=== PATIENT | female | born 1985 | race Caucasian/White ===

== ENCOUNTER 2024-02-27 16:18 | Outpatient (CLI) | payer BC, SELFPAY ==
[2024-03-02 05:43] LABS: FSH 6.4 mIU/mL; LH 8.6 mIU/mL
== END 2024-02-27 16:19 | disposition home or self-care (01) ==
LOC: ANHLAB 16:19
PROVIDERS: PCP Otolaryngology; Visit Provider Obstetrics & Gynecology
DX: N95.9 Unspecified menopausal and perimenopausal disorder (principal)
CPT/HCPCS: 36415; 83001; 83002

== ENCOUNTER 2024-04-28 00:32 | Day surgery (SDC) | payer BC, SELFPAY ==
--- NOTE | 2024-04-19 17:34 | SUR.PREOP ---
Report to the Outpatient Waiting Room, entrance under the green pavilion located off [facility], at time _1000_ on date _04/28/2024_. Planned Procedure Time: _1200_.? Time changes happen often and if your time is changed the preop area will call you the afternoon before. - You and your visitor will be asked to self-screen and do not enter if you have any COVID symptoms. Please call surgeon if you need to reschedule. - A mask is optional within the hospital at this time. Patients may have clear liquids (water, carbonated beverages, clear teas, apple juice) until 3 hours (0900) prior to surgery with a maximum of 20 ounces. - No food from midnight until time of surgery and no smoking, or chewing tobacco (or any form of nicotine). No chewing gum, candy or mints. Take only the following medications with a SIP of water on the morning of surgery: _lamotrigine_ DO NOT STOP ANY OF YOUR OTHER PRESCRIPTION MEDICATIONS PRIOR TO SURGERY EXCEPT THE FOLLOWING Hold all vitamins and supplements for 3 days per anesthesiologist. Medications to discontinue per physician _NA_ Date to take last dose_NA_ Please no make-up, nail english, hairspray, perfume, deodorant, or body powder the day of surgery.? No jewelry (including any body piercings) or valuables the day of surgery, leave them at home.? Please take a shower or bath the night before, or the morning of, surgery with an antibacterial soap.? Wear comfortable, loose fitting clothing.? Children are encouraged to wear pajamas. - Jewelry must be removed prior to entering the operating room.? Rings and piercings that are not removed may be cut off. - The hospital will not accept responsibility for valuables.? - Please leave all valuables, including medications, at home the day of surgery. If you are going home after surgery, a licensed rivet driver must drive you home.? - NO public transportation without another adult if you receive anesthesia. - We recommend that an adult stay with you for 24 hours following discharge. - We also recommend that you do not drive, make important decision, drink alcoholic beverages, or take any drugs that were not prescribed by your health care provider for at least 24 hours after your discharge time. For Pediatric surgeries, we recommend two adults accompany the child home. Follow any additional instructions given to you from your surgeon. Telephone instructions given to _Natali_and asked if any additional questions and then verbalized understanding. Patient advised to call surgeon office or pre surgery nurse liaison [phone] if any additional questions.
[2024-04-19 17:48] VITALS: BMI 18.6
--- NOTE | 2024-04-27 13:13 | P.PNAN_ITS ---
Anes - Initial Pre Proc Eval Procedure: Operation Date: 04/28/24 12:00 Proposed Procedures p Hysteroscopy Dilation and Curettage with Kayla Endometrial Ablation - Mahad Montejo MD Date/Time: 04/27/24 13:13 Surgeon: Mahad Montejo MD Pre Op Diagnosis: irregular heavy bleeding Patient Data Age: 38 Gender: F Height: 1.65 m Weight: 50.9 kg Allergies Allergy/AdvReac Type Severity Reaction Status Date / Time No Known Allergies Allergy Unknown Verified 04/28/24 10:06 Home Medications ?Medication ?Instructions ?Recorded ?Confirmed ?Type lamotrigine 100 mg tablet 200 mg PO BID 04/19/24 04/28/24 History norethindrone 1 mg-ethinyl 1 tablet PO DAILY 04/19/24 04/28/24 History estradiol 10 mcg (24)-iron 10 mcg(2) tablet (Lo Loestrin Fe) rimegepant 75 mg disintegrating 75 mg PO PRN PRN migraine headache 04/19/24 04/19/24 History tablet (Nurtec ODT) Patient hx anesthesia problems: none Family hx anesthesia problems: none Results Review: All pre-operative results and documents have been reviewed as part of the pre- operative evaluation. [facility] Past Medical History Medical History (Updated 04/27/24 @ 13:13 by Denzel Lara DO) Epilepsy Seizure last 2010 Social History Social History Smoking status: Never smoker Second hand tobacco smoke exposure: No Substance use: never Substance use type: does not use Living arrangements: with family Additional living arrangements comments: with and daughter Spiritual care concerns: No Anes - Eval Final PreProcedure Day of Procedure 04/27/24 13:13 Patient weight: normal Heart: regular rate and rhythm Lungs: clear to auscultation and normal air movement Airway: Mallampati scale class II Neurological: alert and oriented Last oral intake: >/= 8 hours ASA classification: II Emergent: no Anesthetic plan: proceed Anesthesia type and monitoring: general GIVS and standard monitoring Results Review: All pre-operative results and documents have been reviewed as part of the pre- operative evaluation. Informed Consent: The patient's anesthetic plan and its attendant risks and benefits were discussed with the patient/family/POA. Questions were solicited and answers provided to the satisfaction of the patient/family/POA.
--- OUTSIDE RECORDS SUMMARY | 2024-04-28 00:35 | XMS_ITS | Referral Summary ---
Author Organization [facility] Address [address] [place] [address] Care Team Providers Care Automobile Drivers Name Role Phone Joe Fadia LINO Primary Care Pr ovider Allergies No known active allergies Medications multivitamin-min erals-lutein tablet daily. 3 Active norethindrone-e. estradioL-iron (Lo Loestrin Fe) 1 mg-10 mcg (24)/10 mcg (2) tablet Take 1 tablet by mouth daily 28 tablet 0 Active fluconazole (DIFLUCAN) 150 mg tabletIndication s:Antibiotic-ind uced yeast infection Take 1 tablet (150 mg total) by mouth as directed Take one tab now. Repeat in 7 days if symptoms persist. 2 tablet 3 Active Additional Information Patient not taking.Reported on 06/06/2022 tretinoin (RETIN-A) 0.025 % cream 3 Active benzonatate (TESSALON) 200 mg capsuleIndicatio ns:Acute cough Take 1 capsule (200 mg total) by mouth 3 (three) times a day as needed for cough 30 capsule 3 Active Additional Information Patient not taking.Reported on 04/13/2023 albuterol HFA (PROVENTIL HFA,VENTOLIN HFA,PROAIR HFA) 90 mcg/actuation inhalerIndicatio ns:Bronchitis Inhale 2 puffs every 4 (four) hours as needed for shortness of breath or wheezing (cough) 18 g 4 Active Additional Information Patient not taking.Reported on 10/13/2023 inhalational spacing device (Aerochamber MV) spacerIndication s:Bronchitis Use with albuterol inhaler 1 each 4 Active Additional Information Patient not taking.Reported on 10/13/2023 lamoTRIgine (LaMICtal) 100 mg tabletIndication s:Generalized idiopathic epilepsy and epileptic syndromes, not intractable, without status epilepticus (HCC) Take 2 tablets (200 mg total) by mouth 2 (two) times a day 360 tablet 3 4 07/30/19 25 Active lidocaine viscous (XYLOCAINE) 2 % solution Apply 15 mL to the mouth or throat every 6 (six) hours as needed (sore throat) Swish & spit 200 mL 4 Active Active Problems Problem Noted Date Diagnosed Date Fatigue 07/12/2022 Migraine 07/12/2022 Generalized idiopathic epile psy and epileptic syndromes, not intractable, without status epilepticus 09/05/2016 Cephalalgia 01/19/2015 Iron deficiency anemia 07/24/2013 Overview (06/14/2016): IRON DEFIC ANEMIA NOS Resolved Problems Problem Noted Date Diagnosed Date Resolved Date Seizure disorder (CMS/HCC) 07/12/2022 0 07/30/2023 Immunizations Immunization Administration Dates Next Due Influenza, Trivalent, IM (MDV) 12/19/2008 Social History Tobacco Use Types Packs/Day Years Used Date Smoking Tobacco: Never Smokeless Tobacco: Never Tobacco Cessation:Counseling Given: Not Answered Alcohol Use Standard Drinks/Week Comments No 0 (1 standard drink = 0.6 oz pur e alcohol) Comments No Sex and Gender Information Value Date Recorded Sex Assigned at Not on file 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 Gender Identity Not on file Sexual Orientation Straight 09/29/2019 12 :12 AM CDT Last Filed Vital Signs Vital Sign Reading Time Taken Comments Blood Pressure 112/80 12/08/2023 5:49 PM CDT Pulse 56 12/08/2023 5:49 PM CDT Temperature 36.6 C (97.8 F) 12/08/2023 5:49 PM CDT Respiratory Rate 14 12/08/2023 5:49 PM CDT Oxygen Saturation 97% 12/08/2023 5:49 PM CDT Inhaled Oxygen Concentration - - Weight 51.3 kg (113 lb) 12/08/2023 5:49 PM CDT Height 165.1 cm (5' 5 ) 12/08/2023 5:49 PM CDT Body Mass Index 18.8 12/08/2023 5:49 PM CDT Plan of Treatment Not on file Insurance [employer] [place] [employer] [place] [employer] [place] Care Teams Automobile Drivers Relationship Specialty Start Date End Date Fadia Diaz PA PCP - General Physician Loading Machine Adjuster 01/11/22
--- OUTSIDE RECORDS SUMMARY | 2024-04-28 00:35 | XMS_ITS | Patient Health Record ---
Author Organization [facility] Address [address] [place] [address] Care Team Providers Care Dispatcher Electric Power Name Role Phone Fadia Diaz Primary Care Provider Unavailab Leyda Lal Unavailable [phone] Allergies No Known Allergies Reason For Referral No Information Medications Medication SIG (Take, Route, Frequency, Duration) Notes Start Date End Date Status Low-Ogestrel 0.3-30 MG-MCG 1 tablet Orally Once a day As needed 02/19/2024 Active Rizatriptan Benzoate 10 MG 1 tablet Orally once, may repeat x1 after 2-4 hours for 30 days As needed for migraine (max 2 tabs/day) 02/19/2024 Active LaMICtal 200 MG 1 tablet Orally Once a day Active Nurtec 75 MG 1 tablet Orally once daily for 30 days As needed 04/07/2024 Active Social History Tobacco Use: Social History Observation Description Date Details (start date - stop date) Never Smoker NA - NA Smoking Smart Form: Question Answer Notes Are you a: never smoker Additional Findings:Tobacco Non-User Non-smoker for zoroastrianism reasons Problems Problem Type SNOMED Code ICD Code Onset Dates Problem Status W/U Status Risk Notes Problem Generalized idiopathic epilepsy and epileptic syndromes, not intractable, without status epilepticus (G40.309) Active confirmed Problem Chronic migraine without aura, non-refractor y (disorder) (002168052295 100) Migraine without aura, not intractable, without status migrainosus (G43.009) Active confirmed Problem Migraine with aura (7561008) Migraine with aura, not intractable, without status migrainosus (G43.109) Active confirmed Problem Chronic migraine without aura, non-intractab le (417476565120 100) Chronic migraine without aura, not intractable, without status migrainosus (G43.709) Active confirmed Vital Signs Blood pressure diastolic 84 mm Hg 02/19/2024 Oximetry 100 % 02/19/2024 Blood pressure systolic 118 mm Hg 02/19/2024 Weight 112.2 lbs 02/19/2024 Encounters Encounter Location Date Provider Diagnosis [address] [address] 02/19/2024 Leyda Linares Migraine without aura, not intractable, without status migrainosus G43.009 ; Drug-induced headache, not elsewhere classified, not intractable G44.40 ; Myalgia, unspecified site M79.10 and Generalized idiopathic epilepsy and epileptic syndromes, not intractable, without status epilepticus G40.[address] [address] 04/07/2024 Leyda Linares [address] [address] 04/08/2024 Leyda Linares [address] [address] 04/07/2024 Leyda Linares [address] [address] 04/08/2024 Leyda Linares Assessments Encounter Date Diagnosis (ICD Code) Assessment Notes Treatment Notes Treatment Clinical Notes Section Notes 02/19/2024 Migraine without aura, not intractable, without status migrainosus (ICD-10 - G43.009) -Abortive treatment plan: Start rizatriptan 10 mg. Gave samples of Nurtec and Ubrelvy.-Preventi ve treatment plan: The patient prefers not to be on daily preventative medication at this time.-Educated the patient on migraine lifestyle recommendations. I recommended the following measures: avoid known triggers of migraine, drink > 100 fluid ounces of non-caffeinated fluid daily, limit caffeine to 2 servings/day, sleep 7-8 hours/night and address any sleep concerns with us and report symptoms of snoring or fatigue; healthy management of stress; avoid treating headaches more than 2 days/week with abortive medication unless approved in treatment plan; can take Riboflavin 400 mg and Magnesium 500 mg daily as supplements; keep scheduled follow-up appointments 02/19/2024 Drug-induced headache, not elsewhere classified, not intractable (ICD-10 - G44.40) Limit use of OTC analgesics to 2 days per week or less. Educated patient regarding medication overuse headaches. Advised to avoid taking NSAIDs or acetaminophen > 15 days/month, triptans or DHE > 10 days/month, butalbital > 10 days/month to avoid rebound headaches. 02/19/2024 Myalgia, unspecified site (ICD-10 - M79.10) Continue chiropractic treatments. 02/19/2024 Generalized idiopathic epilepsy and epileptic syndromes, not intractable, without status epilepticus (ICD-10 - G40.309) Continue lamotrigine as prescribed. Plan Of Treatment Next Appt Details Provider Name:Leyda ascencio, 05/13/2024 03:30:00 PM, [address], [address], Insurance Providers Payer Name Payer Address Payer Phone Subscriber Number Group Number Insured Name Patient Relationship to Insured Coverage Start Date Coverage End Date [facility] [address] [place] [phone] [id number] Dmitry Castro Spouse - patient is the spouse of the insured Medical (General) History Medical History History ICD Code Epilepsy migraines Surgical History Surgery Date(Month/Year) Laparoscopic surgery to identify endomet riosis 10/26/2010 Tonsillectomy 02/13/2015 D and c 01/01/2013 Hospitalization History Reason Date(Month/Year) Continuous EEG video monitoring for epil epsy 07/12/2011
--- OUTSIDE RECORDS SUMMARY | 2024-04-28 00:35 | XMS_ITS | Clinical Summary ---
Author Organization [facility] Address [address] [place] [address] Care Team Providers Care Senior Strategy Analyst Name Role Phone Naomy Diazdanny LINO Primary Care Pr ovider Allergies No [...] Next Due Influenza, Trivalent, IM (MDV) 12/19/2008 Surgical History Surgery Date Site/Laterality Comments VA LAPS ABD PRTM&OMENTUM DX W/WO SPEC BR/WA SPX Laparoscopy (Diagnostic) - (Added by TW Conv) Medical History Medical History Date Comments Varicella History of varic debra - (Added by TW Conv) Mononucleosis 2005 [place] Seizure disorder (CMS/HCC) (HCC) Migraine Ovarian cyst Family History Medical History Relation Name Comments Kidney disease Father Epilepsy Sister Family history of epilepsy - (Added by TW Conv) Deep vein thrombosis Neg Hx Pulmonary embolism Neg Hx Relation Name Status Comments Father Sister Social History Tobacco Use Types Packs/Day Years Used Date Smoking Tobacco: Never Smokeless Tobacco: Never Tobacco Cessation:Counseling Given: Not Answered Alcohol Use Standard Drinks/Week Comments No 0 (1 standard drink = 0.6 oz pur e alcohol) Comments No Sex and Gender Information Value Date Recorded Sex Assigned at Not on file 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[employer] Gender Identity Not on file Sexual Orientation Straight 09/29/2019 12 :12 AM CDT Obstetrics History Last Filed Vital Signs Vital Sign Reading [...] 12/08/2023 5:49 PM CDT Plan of Treatment Health Maintenance Due Date Last Done Comments Cervical Cancer Screening 1986 Depression Screening 1986 Hepatitis C Screening 1986 DTaP/Tdap/Td Vaccine (1 - Tdap) 1997 Hepatitis B Screening 2004 Regular Well Visit/Exam 18-64 2004 Covid-19 Vaccine ( season) 2023 06/17/2020, 05/26/2020 Influenza Vaccine (#1) 2023 7, 12/05/2016, 03/20/2013, Additional history exists HPV Vaccines Aged Out No longer eligi ble based on patient's age to complete this topic Pneumococcal vaccine <65 Aged Out No longer eligible based on patient's age to complete this topic Insurance [facility] [place] Care Teams Senior Strategy Analyst Relationship Specialty Start Date End Date Fadia Diaz PA PCP - General Physician Letter Of Credit Document Examiner 01/11/22
--- OUTSIDE RECORDS SUMMARY | 2024-04-28 00:35 | XMS_ITS | Data Portability ---
Author Organization [facility] Kiosked, Main Office Address [address] [place] [address] Assessment No assessment recorded. Plan of Treatment Reminders Order Date Submit Date Provider Last Modified By Organization Details Last Modified Time Details Appointments None recorded. Lab lipid panel, serum 023 023 [employer] [facility], [address], [place], [address], 3 10:23:36 CBC w/ auto diff 023 [employer] [facility], [address], [place], [address], 3 10:23:39 CMP, serum or plasma 023 [employer] [facility], [address], [place], [address], 3 10:23:37 HbA1c (hemoglob in A1c), blood 023 023 [employer] [facility], [address], [place], [address], 3 10:23:38 TSH + free T4, serum 023 023 [employer] [facility], [address], [place], [address], 3 10:23:35 iron + TIBC + ferritin, serum 023 023 [employer] [facility], [address], [place], [address], 3 10:23:35 vitamin B12 + folate, serum or blood 023 023 [facility], [address], [place], [address], 3 10:23:40 vitamin D, 25-hydrox y, total, serum 023 023 [facility], [address], [place], [address], 3 10:23:39 Referral None recorded. Procedures None recorded. Surgeries None recorded. Imaging None recorded. Medication Orders None recorded. Patient TargetsNo targets recorded. Patient InstructionsNo instructions recorded. Reason for Referral None Reported. Results Created Date Observation Date Name Description Value Unit Range Abnormal Flag Note LastModifiedBy Organization Detail LastModifiedTime 07/20/1907/20/2022 IRON, TIBC AND JAMEE TIN PANEL iron, total 169 mcg/d L 40-190 normal Not Available [address], [address], 07/20/2022 10:23:35 07/20/19 23 07/20/2022 IRON, TIBC AND JAMEE TIN PANEL iron binding capacity 311 mcg/d L_(ca lc) 250-45 0 normal Not Available [address] [address] [place], [address], 07/20/2022 10:23:35 07/20/19 23 07/20/2022 IRON, TIBC AND JAMEE TIN PANEL % saturation 54 %_(ca lc) 16-45 high Not Available [address] [address] [place], [address], 07/20/2022 10:23:35 07/20/19 23 07/20/2022 IRON, TIBC AND JAMEE TIN PANEL ferritin 50 NG/mL 16-154 normal Not Available [address], [address], 07/20/2022 10:23:35 07/20/19 23 07/20/2022 TSH+F REE T4 TSH 1.14 mIU/L normal Refer ence Range > or = 20 Years 0.40- 4.50 Pregn king Range s First trime ster 0.26- 2.66 Secon d trime ster 0.55- 2.73 Third trime ster 0.43- 2.91 Not Available [address], [address], 07/20/2022 10:23:35 07/20/19 23 07/20/2022 TSH+F REE T4 T4, free 1.2 NG/dL 0.8-1. 8 normal Not Available [address], [address], 07/20/2022 10:23:35 07/20/19 23 07/20/2022 LIPID PANEL WITH RATIO S cholesterol, total 160 mg/dL <200 normal Not Available [address], [address], 07/20/2022 10:23:36 07/20/19 23 07/20/2022 LIPID PANEL WITH RATIO S HDL cholesterol 59 mg/dL > or = 50 normal Not Available [address], [address], 07/20/2022 10:23:36 07/20/19 23 07/20/2022 LIPID PANEL WITH RATIO S triglyceride s 84 mg/dL <150 normal Not Available [address], [address], 07/20/2022 10:23:36 07/20/19 23 07/20/2022 LIPID PANEL WITH RATIO S LDL-choleste rol 84 mg/dL _(estella c) normal Refer ence range : <100 Sharath able range <100 mg/dL for prima ry preve ntion ; <70 mg/dL for patie nts with CHD or diabe tic patie nts with > or = 2 CHD risk facto rs. LDL-C is now calcu lated using the Aixa n-Hop kins kyleigh amanda, which is a valid ated novel metho d provi ding wendy r accur acy than the Fried leigh equat ion in the estim ation of LDL-C . Aixa amanda SS et al. SAUL. 2013; 310(1 9): 2061- 206 (http ://ed ucati on.Qu WhiteSmoke. com/f aq/FA Q164) Not Available [employer] [address], [address], 07/20/2022 10:23:36 07/20/19 23 07/20/2022 LIPID PANEL WITH RATIO S chol/HDLC ratio 2.7 (calc ) <5.0 normal Not Available [employer] [address], [address], 07/20/2022 10:23:36 07/20/19 23 07/20/2022 LIPID PANEL WITH RATIO S LDL/HDL ratio 1.4 (calc ) Below avera ge Risk: <2.34 [place] ge Risk: 2.35- 4.12 Moder ate Risk: 4.13- 5.56 High Risk: >5.57 Not Available [employer] [address], [address], 07/20/2022 10:23:36 07/20/19 23 07/20/2022 LIPID PANEL WITH RATIO S non HDL cholesterol 101 mg/dL _(estella c) <130 normal For patie nts with diabe chinmay plus 1 major ASCVD risk facto r, treat ing to a non-H DL-C goal of <100 mg/dL (LDL- C of <70 mg/dL ) is aureliano boyleo n. Not Available [employer] [facility] [id number] [place] [address], [address], 07/20/2022 10:23:36 07/20/19 23 07/20/2022 COMPR EHENS KANDY METAB OLIC PANEL glucose 77 mg/dL 65-99 normal Fasti ng refer ence inter tai Not Available [address], [address], 07/20/2022 10:23:37 07/20/19 23 07/20/2022 COMPR EHENS KANDY METAB OLIC PANEL urea nitrogen (BUN) 9 mg/dL 7-25 normal Not Available [address], [address], 07/20/2022 10:23:37 07/20/19 23 07/20/2022 COMPR EHENS KANDY METAB OLIC PANEL creatinine 0.77 mg/dL 0.50-0 .97 normal Not Available [address], [address], 07/20/2022 10:23:37 07/20/19 23 07/20/2022 COMPR EHENS KANDY METAB OLIC PANEL eGFR 103 mL/mi n/1.7 3m2 > or = 60 normal The eGFR is based on the CKD-E PI 2020 equat ion. To calcu late the new eGFR from a previ ous Creat inine or Cysta tin C resul t, go to https ://bony ash.kennedy mullins/nubia kebede s/ kdoqi /gfr% 5Fcal culat or Not Available [address], [address], 07/20/2022 10:23:37 07/20/19 23 07/20/2022 COMPR EHENS KANDY METAB OLIC PANEL BUN/creatini ne ratio NOT APPLIC ABLE (calc ) 6-22 Not Available [address], [address], 07/20/2022 10:23:37 07/20/19 23 07/20/2022 COMPR EHENS KANDY METAB OLIC PANEL sodium 139 mmol/ L 135-14 6 normal Not Available [address], [address], 07/20/2022 10:23:37 07/20/19 23 07/20/2022 COMPR EHENS KANDY METAB OLIC PANEL potassium 4.2 mmol/ L 3.5-5. 3 normal Not Available [address], [address], 07/20/2022 10:23:37 07/20/19 23 07/20/2022 COMPR EHENS KANDY METAB OLIC PANEL chloride 103 mmol/ L 98-110 normal Not Available [address], [address], 07/20/2022 10:23:37 07/20/19 23 07/20/2022 COMPR EHENS KANDY METAB OLIC PANEL carbon dioxide 29 mmol/ L 20-32 normal Not Available [address], [address], 07/20/2022 10:23:37 07/20/19 23 07/20/2022 COMPR EHENS KANDY METAB OLIC PANEL calcium 9.2 mg/dL 8.6-10 .2 normal Not Available [address], [address], 07/20/2022 10:23:37 07/20/19 23 07/20/2022 COMPR EHENS KANDY METAB OLIC PANEL protein, total 7.1 g/dL 6.1-8. 1 normal Not Available [address], [address], 07/20/2022 10:23:37 07/20/19 23 07/20/2022 COMPR EHENS KANDY METAB OLIC PANEL albumin 4.7 g/dL 3.6-5. 1 normal Not Available [address], [address], 07/20/2022 10:23:37 07/20/19 23 07/20/2022 COMPR EHENS KANDY METAB OLIC PANEL globulin 2.4 g/dL_ (calc ) 1.9-3. 7 normal Not Available [address], [address], 07/20/2022 10:23:37 07/20/19 23 07/20/2022 COMPR EHENS KANDY METAB OLIC PANEL albumin/glob ulin ratio 2.0 (calc ) 1.0-2. 5 normal Not Available [address], [address], 07/20/2022 10:23:37 07/20/19 23 07/20/2022 COMPR EHENS KANDY METAB OLIC PANEL bilirubin, total 0.6 mg/dL 0.2-1. 2 normal Not Available [address], [address], 07/20/2022 10:23:37 07/20/19 23 07/20/2022 COMPR EHENS KANDY METAB OLIC PANEL alkaline phosphatase 44 U/L 31-125 normal Not Available [address], [address], 07/20/2022 10:23:37 07/20/19 23 07/20/2022 COMPR EHENS KANDY METAB OLIC PANEL AST 10 U/L 10-30 normal Not Available [address], [address], 07/20/2022 10:23:37 07/20/19 23 07/20/2022 COMPR EHENS KANDY METAB OLIC PANEL ALT 8 U/L 6-29 normal Not Available [address], [address], 07/20/2022 10:23:37 07/20/19 23 07/20/2022 HEMOG LOBIN A1C hemoglobin A1C 4.7 %_of_ total _HGB <5.7 normal For the purpo se of hemal melendrez for the prese nce of diabe chinmay: <5.7% Consi stent with the absen ce of diabe chinmay 5.7-6 .4% Consi stent with incre ased risk for diabe chinmay (pred iabet es) > or =6.5% Consi stent with diabe chinmay This assay resul t is consi stent with a decre ased risk of diabe chinmay. Curre ntly, no conse nsus exist s regar michael use of hemog lobin A1c for diagn osis of diabe chinmay in child willy. Accor ding to Ameri can Diabe chinamy Assoc iatio n (ADA) guide lines , hemog lobin A1c <7.0% repre sents optim al contr ol in non-p regna nt diabe tic patie nts. Diffe rent metri cs may apply to speci fic patie nt popul ation s. Stand ards of Medic al Care in Diabe chinmay(A DA). Not Available [employer] [facility] [address] [place], [address], 07/20/2022 10:23:38 07/20/19 23 07/20/2022 VITAM IN D,25- OH,TO CHAPARRO,I A vitamin D,25-oh,tota l,ia 28 NG/mL 30-100 low Vitam in D Statu s 25-OH Vitam in D: Defic iency : <20 ng/mL Insuf ficie ncy: 20 - 29 ng/mL Optim al: > or = 30 ng/mL For 25-OH Vitam in D testi ng on patie nts on D2-dutton pplem entat ion and patie nts for whom quant itati on of D2 and D3 fract ions is requi red, the [facility] Assur eD(TM ) 25-OH VIT D, (D2,D 3), LC/MS /MS is recom raffi d: order code 70766 (angela ents >2yrs ). See Note 1 Note 1 For addit ional infor jody mckenna e refer to http: //edu catio n.Que stDia gnost ics.c om/fa q/FAQ 199 (This link is being provi ded for infor rosita baron/ itzel telloo ses only. ) Not Available [address], [address], 07/20/2022 10:23:39 07/20/19 23 07/20/2022 CBC (INCL UDES DIFF/ PLT) white blood cell count 8.6 thous and/u L 3.8-10 .8 normal Not Available [address], [address], 07/20/2022 10:23:39 07/20/19 23 07/20/2022 CBC (INCL UDES DIFF/ PLT) red blood cell count 5.02 tiara on/uL 3.80-5 .10 normal Not Available [address], [address], 07/20/2022 10:23:39 07/20/19 23 07/20/2022 CBC (INCL UDES DIFF/ PLT) hemoglobin 14.5 g/dL 11.7-1 5.5 normal Not Available [address], [address], 07/20/2022 10:23:39 07/20/19 23 07/20/2022 CBC (INCL UDES DIFF/ PLT) hematocrit 43.2 % 35.0-4 5.0 normal Not Available [address], [address], 07/20/2022 10:23:39 07/20/19 23 07/20/2022 CBC (INCL UDES DIFF/ PLT) MCV 86.1 fL 80.0-1 00.0 normal Not Available [address], [address], 07/20/2022 10:23:39 07/20/19 23 07/20/2022 CBC (INCL UDES DIFF/ PLT) MCH 28.9 pg 27.0-3 3.0 normal Not Available [address], [address], 07/20/2022 10:23:39 07/20/19 23 07/20/2022 CBC (INCL UDES DIFF/ PLT) MCHC 33.6 g/dL 32.0-3 6.0 normal Not Available [address], [address], 07/20/2022 10:23:39 07/20/19 23 07/20/2022 CBC (INCL UDES DIFF/ PLT) RDW 13.2 % 11.0-1 5.0 normal Not Available [address], [address], 07/20/2022 10:23:39 07/20/19 23 07/20/2022 CBC (INCL UDES DIFF/ PLT) platelet count 310 thous and/u L 140-40 0 normal Not Available [address], [address], 07/20/2022 10:23:39 07/20/19 23 07/20/2022 CBC (INCL UDES DIFF/ PLT) MPV 10.1 fL 7.5-12 .5 normal Not Available [address], [address], 07/20/2022 10:23:39 07/20/19 23 07/20/2022 CBC (INCL UDES DIFF/ PLT) absolute neutrophils 5521 cells /uL 1500-7 800 normal Not Available [employer] [address], [address], 07/20/2022 10:23:39 07/20/19 23 07/20/2022 CBC (INCL UDES DIFF/ PLT) absolute lymphocytes 2468 cells /uL 850-39 00 normal Not Available [address], [address], 07/20/2022 10:23:39 07/20/19 23 07/20/2022 CBC (INCL UDES DIFF/ PLT) absolute monocytes 482 cells /uL 200-95 0 normal Not Available [address], [address], 07/20/2022 10:23:39 07/20/19 23 07/20/2022 CBC (INCL UDES DIFF/ PLT) absolute eosinophils 86 cells /uL 15-500 normal Not Available [address], [address], 07/20/2022 10:23:39 07/20/19 23 07/20/2022 CBC (INCL UDES DIFF/ PLT) absolute basophils 43 cells /uL 0-200 normal Not Available [facility] [address], [address], 07/20/2022 10:23:39 07/20/19 23 07/20/2022 CBC (INCL UDES DIFF/ PLT) neutrophils 64.2 % normal Not Available [facility] [address], [address], 07/20/2022 10:23:39 07/20/19 23 07/20/2022 CBC (INCL UDES DIFF/ PLT) lymphocytes 28.7 % normal Not Available [address], [address], 07/20/2022 10:23:39 07/20/19 23 07/20/2022 CBC (INCL UDES DIFF/ PLT) monocytes 5.6 % normal Not Available [facility] [address], [address], 07/20/2022 10:23:39 07/20/19 23 07/20/2022 CBC (INCL UDES DIFF/ PLT) eosinophils 1.0 % normal Not Available [address], [address], 07/20/2022 10:23:39 07/20/19 23 07/20/2022 CBC (INCL UDES DIFF/ PLT) basophils 0.5 % normal Not Available [address], [address], 07/20/2022 10:23:39 07/20/19 23 07/20/2022 VITAM IN B12/F OLATE , SERUM PANEL vitamin B12 204 pg/mL 200-11 00 normal Pleas e Note: Altho ugh the refer ence range for vitam in B12 is 200-1 100 pg/mL , it has been repor saad that betwe en 5 and 10% of patie nts with value s betwe en 200 and 400 pg/mL may exper ience neuro psych iatri c and hemat ologi c abnor malit ies due to occul t B12 defic iency ; less than 1% of patie nts with value s above 400 pg/mL will have sympt oms. Not Available [address], [address], 07/20/2022 10:23:40 07/20/19 23 07/20/2022 VITAM IN B12/F OLATE , SERUM PANEL folate, serum 14.2 NG/mL normal Refer ence Range Low: <3.4 Borde rline : 3.4-5 .4 Ashley l: >5.4 Not Available [address], [address], 07/20/2022 10:23:40 Result Notes None recorded. Problems Name Problem SNOMED Code Status Onset Date Resolution Date Notes Provider Name and Address Organization Details Recorded Time Fatigue 56390239 Active 023 HOLLAND Miranda [address], [place], [address] , [place] [facility] [employer] 3 12:44:09 Migraine 97783771 Active 023 HOLLAND Miranda [address], [place], [address] , [facility] 3 12:46:13 Seizure disorder 268742661 Active 023 HOLLAND Miranda [address] [facility] [address], [place], [address] , [facility] 3 12:46:16 Problem Notes None recorded. 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 Procedure Notes None recorded. Medical Equipment None Reported. Allergies No known drug allergies Medications Name Sig Start Date Stop Date Status Note LastModified by Organization Details LastModified Time amoxicillin 500 mg capsule 06/27 completed Not Available Not Available Not Available doxycycline hyclate 100 mg capsule Take 1 capsule twice a day by oral route with meals. active Not Available Not Available No t Available azithromycin 250 mg tablet TAKE 2 TABLETS (500 MG) BY ORAL ROUTE ONCE DAILY FOR 1 DAY THEN 1 TABLET (250 MG) BY ORAL ROUTE ONCE DAILY FOR 4 DAYS 06/27 completed Not Available Not Available Not Available fluconazole 150 mg tablet 06/27 completed Not Available Not Available Not Available benzonatate 200 mg capsule Take 1 capsule 3 times a day by oral route as needed. 06/27 completed Not Available Not Available Not Available amoxicillin 875 mg tablet Take 1 tablet every 12 hours by oral route. 06/27 completed Not Available Not Available Not Available nortriptylin e 10 mg capsule active Not Available Not Available Not Available methylpredni solone 4 mg tablets in a dose pack 06/27 completed Not Available Not Available Not Available lamotrigine 100 mg tablet TK 2 TS PO IN THE MORNING AND IN THE MARIAELENA active Not Available Not Available No t Available amoxicillin 875 mg-potassium clavulanate 125 mg tablet 06/27 completed Not Available Not Available Not Available drospiren-e. estrad-l.mef ol 3 mg-0.02 mg-0.451 mg(24)/0.451 mg(4)tablet 03/25 completed Not Available Not Available Not Available Lo Loestrin Fe 1 mg-10 mcg (24)/10 mcg (2) tablet TAKE 1 TABLET BY MOUTH DAILY active Not Available Not Available No t Available Minastrin 24 Fe 1 mg-20 mcg (24)/75 mg (4) chewable tablet TK 1 T PO QD 04/02 completed Not Available Not Available Not Available Virtussin AC 10 mg-100 mg/5 mL oral liquid TK 10ML PO HS PRN 04/16 completed Not Available Not Available Not Available Taytulla 1 mg-20 mcg (24)/75 mg (4) capsule TK 1 C PO QD 03/25 completed Not Available Not Available Not Available Fluvirin 4514-1447 45 mcg (15 mcg x 3)/0.5 mL intramuscula r suspension active Not Available Not Available Not Available Vitals Date Recorded Body mass index (BMI) Body height Oxygen saturation Oxygen saturation in Arterial blood by Pulse oximetry Heart rate Body temperature Body weight Systolic blood pressure Diastolic blood pressure Provider Name and Address Organization Details Last Updated DateTime 3 18.1 kg/m2 165.1 cm 98 % 98 % 104 /min 98 [degF] 56550.8 5 g 110 mm[Hg] 70 mm[Hg] Not Available [facility] 3 19:17:38 Date Recorded Body weight Body mass index (BMI) Body height Heart rate Oxygen saturation Oxygen saturation in Arterial blood by Pulse oximetry Body temperature Systolic blood pressure Diastolic blood pressure Provider Name and Address Organization Details Last Updated DateTime 3 [address]0436.0 1 g 17.1 kg/m2 165.1 cm 89 /min 98 % 98 % 97.6 [degF] 110 mm[Hg] 62 mm[Hg] Shavon Morris RN [place] - [facility] MD [facility] 3 12:21:40 Social History Question Answer Notes LastModified by Organizat ion Details LastModified Time Tobacco Smoking Status Never Smoker Not Available [facility] 05/08/2022 19:17:02 Do You Have An Advance Directive? Yes [id number] Information not available 05/08/2022 What Is Your Level Of Alcohol Consumption? None [id number] Information not available 05/08/2022 If You Are , What Was Your Level Of Alcohol Consumption Prior To ? None MIGRATION.[id number] Information not available 05/08/2022 Do You Wear A Helmet When Biking? No MIGRATION.850355 9610 Information not available 05/08/2022 What Is Your Level Of Caffeine Consumption? Moderate MIGRATION.[id number] 7853 Information not available 05/08/2022 In The 14 Days Before Symptom Onset, Have You Had Close Contact With A Laboratory-confirm ed COVID-19 While That Case Was Ill? No [id number] Information not available 05/08/2022 In The 14 Days Before Symptom Onset, Have You Had Close Contact With A Person Who Is Under Investigation For COVID-19 While That Person Was Ill? No MIGRATION.[id number] 5715 Information not available 05/08/2022 Are You Currently Employed? No [email or web address] Information not available 06/27/2022 What Type Of Diet Are You Following? REGULAR MIGRATION.389043 0902 Information not available 05/08/2022 What Is The Highest Grade Or Level Of School You Have Completed Or The Highest Degree You Have Received? 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 No MIGRATION.177237 7588 Information not available 05/08/2022 Are There Any Guns Present In Your Home? Yes MIGRATION.442401 1371 Information not available 05/08/2022 Do You Use Insect Repellent Routinely? Yes MIGRATION.396584 8219 Information not available 05/08/2022 What Is Your Relationship Status? MIGRATION.984573 8321 Information not available 05/08/2022 Do You Use Your Seat Belt Or Car Seat Routinely? Yes MIGRATION.582680 9876 Information not available 05/08/2022 Do You Have Smoke And Carbon Monoxide Detectors In Your Home? Yes MIGRATION.154537 9659 Information not available 05/08/2022 Are You Passively Exposed To Smoke? No MIGRATION.699448 2229 Information not available 05/08/2022 Are There Any Smokers In Your House? No MIGRATION.014205 4028 Information not available 05/08/2022 Do You Feel Stressed (tense, Restless, Nervous, Or Anxious, Or Unable To Sleep At Night)? [id number] MIGRATION.571472 6783 Information not available 05/08/2022 Do You Use Any Illicit Or Recreational Drugs? No MIGRATION.894469 1037 Information not available 05/08/2022 Do You Use Sunscreen Routinely? Yes MIGRATION.738130 7901 Information not available 05/08/2022 Has Tobacco Cessation Counseling Been Provided? No MIGRATION.372413 5947 Information not available 05/08/2022 Have You Recently Traveled Abroad? No MIGRATION.652764 8564 Information not available 05/08/2022 Do You Have Any Dietary Restrictions? No MIGRATION.262906 5754 Information not available 05/08/2022 Do You Or Have You Ever Used Any Other Forms Of Tobacco Or Nicotine? No MIGRATION.854398 7932 Information not available 05/08/2022 Sex: Female Functional Status Question Answer Note LastModified by Organizat ion Details LastModified Time What is your exercise level? Occasional [id number] Information not available 05/08/2022 Mental Status None recorded. Family History Relationship Description Onset Age of this Age Resolved Age Notes LastModified by Organization Details LastModified Time Father No current problems or disability [id number] Not available 05/08/2022 19:17:14 Mother No current problems or disability [id number] Not available 05/08/2022 19:17:14 Medical History Condition Response SEIZURES/EPILEPSY Y HEADACHES/MIGRAINES Y BACK / NECK PROBLEMS Y Gynecological History Statement/Question Response Menses Monthly Y Abnormal Pap N Date of Last Pap 09/07/2019 Current Control Method BCPs Sexually Active? Y Obstetrics History GPAL:G 1 P 0 0 0 1 Type Value Living 1 Total 1 Immunizations Vaccine Type Date Status Note Provider Nam e and Address Organization Details Recorded Time influenza, unspecified formulation 7 completed Not Available [facility] 05/08/2022 19:19:00 Past Encounters Encounter ID Performer Location Encounter Start Date Encounter Closed Date Diagnosis/Indication Diagnosis SNOMED-CT Code Diagnosis ICD10 Code Diagnosis Note [id number] [facility] Internal [facility] [place] [address] [place] [address] 02/09/2021 00:00:00 03/07/2021 20:26:40 [id number] HOLLAND Miranda [facility] Internal Med [place] [address] [place] [address] 07/12/2022 12:17:46 07/12/2022 12:50:12 Adult health examination 420454157 Z00.01 well exam completed. fasting labs all ordered Cholesterol screening 27 8647558 Z13.220 Diabetes m ellitus screening 873570343 Z13.1 Long-term drug therapy 364085737 Z79.899 Fatigue 39101494 R53.83 fatigue lab panel ordered. vitamins included per request Migraine 95492547 G43.90 9 samples of ubrelvy 50mg dose and also Nurtec ODT 75mg to trial , neurology has her on low dose nortriptyl ine but she is needing something for menstrual breakthrou gh headaches Seizure disorder 9584789 02 G40.909 stable with neurology Health Concerns Section Related Observation LastModified by Organization Detai ls LastModified Time None Recorded Concern Status LastModified by Organization Details LastModified Time None Recorded Advance Directives Directive Y: Payers Encounter Date Sequence Insurance Name Policy Number Policy Jasso Covered Member ID Jasso Member ID Guarantor Name 07/12/2022 1 [facility]: (PPO) [id number] Dmitry Valdez [id number] Natali Valdez Notes Date Note Type Note Provider Name and Address Organization Details Recorded Time 02/09/2021 text/html Generic HPI TemplateReported bypatient.Notes:Pt is here today for a physical for her new job Not Available [facility] 03/07/2021 20:26:40 07/12/2022 text/html wellnessc/o fatigue HOLLAND Miranda [address] [facility] [address], [place], [address], [facility]isa 08/06/2022 18:08:25 OBGyn Episode No OBEpisode recorded.
--- OUTSIDE RECORDS SUMMARY | 2024-04-28 00:36 | XMS_ITS ---
Author Organization [facility] Address [address] [place] [address] Care Team Providers Care Demolition Expert Name Role Phone Judicm Fadia Primary Care Provider Unavailab Leyda Lal Unavailable [phone] REASON FOR VISIT Halie LINO Approved 03/09/2024-04/08/2025 Encounters Encounter Location Date Provider Diagnosis [address] [address] 04/08/2024 Leyda Linares Plan Of Treatment Next Appt Details Provider Name:Leyda ascencio, 05/13/2024 03:30:00 PM[facility] [address] [facility] [address], [address], Progress Notes * Martir LALAOB:[birth year] (38 yo F)Acc No.[id number]:04/08/2024 Patient: Faustina MAKEDAASHNatali :1985 A ge:38 Y S ex:Female Address:[address] [place] [address], [address] * true * Date: Generated for Printi ng/Faxing/eTransmitting on: 0 04/28/2024 12:35 AM [employer]
--- OUTSIDE RECORDS SUMMARY | 2024-04-28 00:36 | XMS_ITS | Data Portability ---
Author Organization [facility] ROBERTJanetjoaquín Foote Address [address] [place] [address] Care Team Providers Care Psychometrist Name Role Phone ALISON CUTLER Primary Care Provider Unavailab le Assessment No assessment recorded. Plan of Treatment Reminders Order Date Submit Date Provider Last Modified By Organization Details Last Modified Time Details Appointments None recorded. Lab TSH + free T4, serum 2023 024 [facility], [address], [place], [address], 4 16:19:18 CBC w/ auto diff 2023 024 [email or web address] [facility], [address], [place], [address], 4 09:20:16 C[facility], serum or plasma [email or web address], [address], [place], [address], 4 09:20:17 lipid panel, serum 2023 024 [email or web address] [facility], [address], [place], [address], 4 09:20:16 HbA1c (hemoglobi n A1c), blood 2023 024 [email or web address] [facility], [address], [place], [address], 4 09:20:16 Referral None recorded. Procedures None recorded. Surgeries None recorded. Imaging CT, lumbar spine, w/o contrast 2023 024 [email or web address] [facility] (Radiology), [address] [place] [address] , [place], [address], 4 13:43:24 Medication Orders None recorded. Patient TargetsNo targets recorded. Patient InstructionsNo instructions recorded. Reason for Referral None Reported. Results Created Date Observation Date Name Description Value Unit Range Abnormal Flag Note LastModifiedBy Organization Detail LastModifiedTime Result Notes None recorded. Problems Name Problem SNOMED Code Status Onset Date Resolution Date Notes Provider Name and Address Organization Details Recorded Time Body mass index less than 20 269178994 Active 024 HOLLAND Miranda Attn: Accounting ,[address] [place], [address] , [place] [facility] 4 20:07:35 Plain X-ray of lumbar spine abnormal 165108566 Active 024 HOLLAND Miranda Attn: Accounting ,[address] [place], [address] , [place] [facility] 4 20:07:49 Injury of coccyx 246657964 Active 024 HOLLAND Miranda Attn: Accounting ,[address] [place], [address] , [place] [facility] 4 20:07:50 Problem Notes None recorded. Medical Equipment None Reported. Allergies No known drug allergies Medications Name Sig Start Date Stop Date Status Note LastModified by Organization Details LastModified Time amoxicillin 500 mg capsule 10/21 completed Not Available Not Available Not Available tretinoin 0.025 % topical cream active Not Available Not Availabl e Not Available prednisone 20 mg tablet 10/21 completed Not Available Not Available Not Available topiramate 25 mg tablet 10/21 completed Not Available Not Available Not Available nortriptyline 10 mg capsule 10/21 completed Not Available Not Available Not Available albuterol sulfate HFA 90 mcg/actuation aerosol inhaler active prn- when she is sick Not Available Not Available Not Available lamotrigine 100 mg tablet active Not Available Not Availabl e Not Available amoxicillin 875 mg-potassium clavulanate 125 mg tablet 10/21 completed Not Available Not Available Not Available nitrofurantoi n monohydrate/m acrocrystals 100 mg capsule 10/21 completed Not Available Not Available Not Available clindamycin 1.2 % (1 % base)-benzoyl peroxide 5 % topical gel 10/21 completed Not Available Not Available Not Available Lo Loestrin Fe 1 mg-10 mcg (24)/10 mcg (2) tablet TAKE 1 TABLET BY MOUTH EVERY DAY active Not Available Not Available No t Available Vitals Date Recorded Body weight Body mass index (BMI) Body height Respiratory rate Oxygen saturation Oxygen saturation in Arterial blood by Pulse oximetry Heart rate Systolic blood pressure Diastolic blood pressure Provider Name and Address Organization Details Last Updated DateTime 05047.9 4 g 18.8 kg/m2 165.1 cm 20 /min 99 % 99 % 86 /min 118 mm[Hg] 82 mm[Hg] Blanquita Balderas MA [facility] 15:48:15 Date Recorded Systolic blood pressure Diastolic blood pressure Provider Name and Address Organization Details Last Updated DateTime 10/22/2023 110 mm[Hg] 80 mm[Hg] HOLLAND Miranda Attn: Accounting,[address] [place], [address], [facility] 10/22/2023 16:06:12 Social History Question Answer Notes LastModified by Organizat ion Details LastModified Time Tobacco Smoking Status Never Smoker Blanquita Balderas MA null, [facility] 10/22/2023 15:45:56 Do You Have An Advance Directive? No Information not available 10/22/2023 What Is Your Level Of Alcohol Consumption? None Information not available 10/22/2023 Are You Blind Or Do You Have Difficulty Seeing? Yes Glasses/c ontacts Information not available 10/22/2023 What Is Your Level Of Caffeine Consumption? Occasional 1x A Day Information not available 10/22/2023 In The 14 Days Before Symptom Onset, Have You Had Close Contact With A Laboratory-confir med COVID-19 While That Case Was Ill? No Information not available 10/22/2023 In The 14 Days Before Symptom Onset, Have You Had Close Contact With A Person Who Is Under Investigation For COVID-19 While That Person Was Ill? No Information not available 10/22/2023 Have You Been To An Area Known To Be High Risk For COVID-19? No Information not available 10/22/2023 Are You Deaf Or Do You Have Serious Difficulty Hearing? No Information not available 10/22/2023 What Type Of Diet Are You Following? REGULAR Information not available 10/22/2023 Are There Any Guns Present In Your Home? No Information not available 10/22/2023 What Was The Date Of Your Most Recent Tobacco Screening? 10/22/2023 Information not available 10/22/2023 Do You Use Your Seat Belt Or Car Seat Routinely? Yes Information not available 10/22/2023 Do You Have Smoke And Carbon Monoxide Detectors In Your Home? Yes Information not available 10/22/2023 Do You Use Any Illicit Or Recreational Drugs? No Information not available 10/22/2023 Do You Use Sunscreen Routinely? Yes Face Information not available 10/22/2023 Has Tobacco Cessation Counseling Been Provided? No Information not available 10/22/2023 Do You Or Have You Ever Used Any Other Forms Of Tobacco Or Nicotine? No Information not available 10/22/2023 Sex: Female Functional Status Question Answer Note LastModified by Organizat ion Details LastModified Time Are you able to care for yourself? Yes Information not available 10/22/2023 What is your exercise level? Occasional yoga Information not available 10/22/2023 Mental Status None recorded. Family History Relationship Description Onset Age of this Age Resolved Age Notes LastModified by Organization Details LastModified Time Father No current problems or disability [email or web address] Not available 10/21 15:45:44 Mother No current problems or disability [email or web address] Not available 10/21 15:45:44 Medical History Condition Response Seizures/Epilepsy Y Gynecological History Statement/Question Response Menses Monthly N Current Control Method BCPs Obstetrics History GPAL:G 1 P 0 0 0 1 Type Value Induced 0 Spontaneous 0 Premature 0 Living 1 Ectopics 0 Total 1 Past Encounters Encounter ID Performer Location Encounter Start Date Encounter Closed Date Diagnosis/Indication Diagnosis SNOMED-CT Code Diagnosis ICD10 Code Diagnosis Note [id number] HOLLAND Miranda [facility] [place] [address] [place] [address] 10/22/2023 15:31:28 10/22/2023 16:24:32 Body mass index less than 20 791840687 Z68.1 BMI is 18.8 Injury of coccyx 3052784 08 S39.92XD Patient sustained a fall slipping on rock and coming down on her coccyx region. She still has pain along with some left leg numbness at times. Plain X-ra y of lumbar spine abnormal 904892970 R93.7 Patient reports that her x-ray of her low back was abnormal at the urgent care and she needs to get a CT of her lumbar spine without contrast. Orders given Cholesterol screening 27 1612381 Z13.220 Annual labs were ordered while the patient is here Diabetes m ellitus screening 375779887 Z13.1 Long-term drug therapy 823747814 Z79.899 Thyroid di sorder screening 439180836 Z13.29 Health Concerns Section Related Observation LastModified by Organization Detai ls LastModified Time None Recorded Concern Status LastModified by Organization Details LastModified Time None Recorded Advance Directives Directive N: Payers Encounter Date Sequence Insurance Name Policy Number Policy Jasso Covered Member ID Jasso Member ID Guarantor Name 10/22/2023 1 [facility] [id number] Dmitry Perez [id number] Natali Valdez Notes Date Note Type Note Provider Name and Address Organization Details Recorded Time 10/22/2023 text/html Pt. states that she had an X-ray done on the , states that she had a fall on October 04 at [employer]; slipped on rock and landed on tailbone, and they x-ray her tailbone states that there were no fractures, pt. states that she is still in pain, states that she does have some left leg numbness/ tingling HOLLAND Miranda Attn: Accounting,[address] [place], [address], [facility] 11/08/2023 20:08:08 OBGyn Episode No OBEpisode recorded.
--- OUTSIDE RECORDS SUMMARY | 2024-04-28 00:36 | XMS_ITS ---
Author Organization [facility] Address [address] [place] [address] Care Team Providers Care Verification Specialist Name Role Phone Fadia Diaz Primary Care Provider Unavailab Leyda Lal Unavailable [phone] Allergies No Known Allergies REASON FOR VISIT Headache follow-up Medications Medication SIG (Take, Route, Frequency, Duration) Notes Start Date End Date Status Low-Ogestrel 0.3-30 MG-MCG 1 tablet Orally Once a day As needed 02/19/2024 Active Rizatriptan Benzoate 10 MG 1 tablet Orally once, may repeat x1 after 2-4 hours for 30 days As needed for migraine (max 2 tabs/day) 02/19/2024 Active LaMICtal 200 MG 1 tablet Orally Once a day Active Social History Tobacco Use: Social History Observation Description Date Details (start date - stop date) Never Smoker NA - NA Smoking Smart Form: Question Answer Notes Are you a: never smoker Additional Findings:Tobacco Non-User Non-smoker for holiness reasons Encounters Encounter Location Date Provider Diagnosis [facility] [address] [address] 04/08/2024 Leyda Linares Migraine without aura, not intractable, without status migrainosus G43.009 ; Drug-induced headache, not elsewhere classified, not intractable G44.40 ; Myalgia, unspecified site M79.10 and Generalized idiopathic epilepsy and epileptic syndromes, not intractable, without status epilepticus G40.309 Assessments Encounter Date Diagnosis (ICD Code) Assessment Notes Treatment Notes Treatment Clinical Notes Section Notes 04/08/2024 Migraine without aura, not intractable, without status migrainosus (ICD-10 - G43.009) 04/08/2024 Drug-induced headache, not elsewhere classified, not intractable (ICD-10 - G44.40) 04/08/2024 Myalgia, unspecified site (ICD-10 - M79.10) 04/08/2024 Generalized idiopathic epilepsy and epileptic syndromes, not intractable, without status epilepticus (ICD-10 - G40.309) Plan Of Treatment Next Appt Details Follow Up: , Reason: Evaluat ion and Management Provider Name:Leyda ascencio, 05/13/2024 03:30:00 PM, [address], [address], Progress Notes * Martir LALAOB:[birth year] (38 yo F)Acc No.[id number]:04/08/2024 Progress Notes Patient: Natali MERA Provider: Chela Linares APRN :1985 A ge:38 Y S ex:Female Date:04/08/2024 Address:[address] [place] [address] Pcp:Fadia Diaz Subjective: * Chief Complaints: * 1 . Headache follow-up. * HPI: * Introduction: I had the pleasure of seeing Lv odellrocael Matthew, who presented for follow-up for migraine, MOH, myalgia, and generalized idiopathic epilepsy. * Initial History: INITIAL VISIT HISTORY: She has a history of migraine headaches that started at age 12. The headaches have become worse over the last three years. She occasionally has a seizure aura that lasts less than one minute. The seizure auras are characterized by mild twitching of her legs or numbness in her tongue. The auras occur infrequently and have not evolved into a seizure in 12+ years. She has been on lamotrigine for prophylaxis with the last epileptic event in 2010. 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 Headache History: -Headache Onset: Age 12, worse in the last 3 years-Headache Description: Starts with a dull pain in temples or behind her eye (usually on the right side). The dull pain becomes severe pain within an hour. She has accompanying symptoms of vertigo ( room spinning ), nausea, photophobia, phonophobia, hyperosmia, and GI upset (vomiting and/or diarrhea). Headaches last 2-5 hours if not treated at the onset of symptoms. Postdrome: Fatigue and drowsiness for the remainder of the day. Dull headache pain the following day. -Headache Triggers: Stress, letdown after stress, weather changes (barometric pressure change), menstrual cycle, under sleeping, over sleeping, specific foods, dehydration, skipping a meal, too much or too little caffeine, strong odors, infection (cold, flu, fevers, etc.) -Headache Frequency: The patient is currently experiencing 15-18 Headache days/month and 12 Migraine days/month. * Previous Impression & Plan: Notes P revious Diagnoses: 1 . Migraine without aura, not intractable, without status migrainosus - G43.009 2 . Drug-induced headache, not elsewhere classified, not intractable - G44.40 3 . Myalgia, unspecified site - M79.10 4 . Generalized idiopathic epilepsy and epileptic syndromes, not intractable, without status epilepticus - G40.309 P revious Recommendations: 1 . Abortive: Start rizatriptan 10 mg. Gave samples of Nurtec and Ubrelvy. Preventive: The patient prefers not to be on daily preventative medication at this time. 2 .Limit use of OTC analgesics to 2 days per week or less. Educated patient regarding medication overuse headaches. Advised to avoid taking NSAIDs or acetaminophen > 15 days/month, triptans or DHE > 10 days/month, butalbital > 10 days/month to avoid rebound headaches. 3 . Continue chiropractic treatments. ? 4 . Continue lamotrigine as prescribed. * Interval History: Notes P harmacologic Treatment: C urrent abortive treatment: Rizatriptan 10 mg, N urtec and Ubrelvy samples, E xcedrin P revious abortive treatment: S umatriptan (side effects- nausea), Medrol Dosepak C urrent preventive treatment: None P revious preventive treatment: N ortriptyline (side effects- dry mouth and blurred vision), topamax (prescribed for seizures, ineffective for migraines), lamotrigine (currently takes for seizure prophylaxis, ineffective for headaches) M edication overuse: Not present O ther modalities: Chiropractic biweekly (for migraines and occasional shoulder pain- ineffective) H eadache Frequency: I nitial/baseline headache/migraine days/month: -24/02 L ast visit headache/migraine days/month:-24/02 C urrent headache/migraine days/month: / H eadache Scales: H IT-6: Current score: . Prior score: 67 I nterval History: L ast visit was on 04/08/2024.. * ROS: A LLERGY: sinus congestion Y es. S PECIAL SENSES: ringing in ears Y es. C ONSTITUTIONAL: night sweats Y es. l oss of appetite Y es. f atigue Y es. E NT: Positive P atient denies ear fullness or pain or sinus pain. R ESPIRATORY: Positive for P atient denies shortness of breath or wheezing. O PHTHALMOLOGY: sensitivity to light Y es. E NDOCRINOLOGY: fatigue Y es. s leep disturbance Y es. ? C ARDIOLOGY: leg edema Y es. G ASTROENTEROLOGY: nausea Y es. v omiting Y es. a bdominal pain?Yes. d iarrhea Y es. c onstipation Y es. U ROLOGY: blood in urine Y es. D ERMATOLOGY: dry or sensitive skin Y es. h marleny (urticaria) Y es. N EUROLOGY: headache Y es. t ingling numbness Y es. s eizures Y es. i nsomnia Y es. d izziness Y es. H EMATOLOGY/LYMPH: Positive for P atient denies history of excessive bruising or bleeding diasthesis. M USCULOSKELETAL: Positive for P atient denies extremity joint pain or swelling. P SYCHOLOGY: high stress level Y es. s leep disturbances Y es.?anxiety Y es. F EMALE REPRODUCTIVE: sexually active Y es. h ot flashes Y es. * Medical History: E pilepsy, Migraines. * Surgical History: L aparoscopic surgery to identify endometriosis 10/26/2010, Tonsillectomy 02/13/2015, D and c 01/01/2013. * Hospitalization/Major Diagno stic Procedure: C ontinuous EEG video monitoring for epilepsy 07/12/2011. * Family History: F ather: Yes. M other: Yes. P aternal Grand Father: No. P aternal Grand Mother: No. M aternal Grand Father: No. M aternal Grand Mother: No. P aternal uncle: Yes. P aternal aunt: Yes. M aternal uncle: Yes. M aternal aunt: Yes. S iblings: Yes. C hildren: Yes. * Social History: M arital Status What is your marital status? m arried A lcohol Screening Do you ever drink alcoholic beverages? N o C affeine: Yes. S moking Have you ever smoked tobacco: n ever smoked Additional Findings: Tobacco Non-User N on-smoker for holiness reasons Are you a : n ever smoker S moking Smart Form Are you a: n ever smoker Additional Findings:Tobacco Non-User N on-smoker for holiness reasons R ecreational drug use Have you ever used recreational drugs? N o D etails on consumption of certain products? Do you regularly consume products with aspartame; Equal or NutraSweet? N o Do you regularly consume products with artificial coloring??No Have you ever noticed worsening of your rash with these food items? N o E xercise What kind(s) of exercise do you perform regularly? y oga,age-appropriate participation in physical activites How often do you perform this exercise? w eekly A re any of the following personal care products containing fragrance, dye or preservatives used regularly? Shampoo: Y es Conditioner: Y es Soap: N o Laundry Detergent: Y es Fabric Softener: N o Deodorant: N o Perfume, cologne, after shave: N o Air freshners or other scented products: N o Hair coloring dyes or rinses: N o O ccupation Are you currenly employed? Y es Employment status? 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 number of years?1 Do you believe that your current or previous occupation has any bearing on your illness? Y es Please describe the effect of your illness on your job p oor concentration,decreased enjoyment Do you have any pending or planned legal action against your current or former employer which pertains to your medical illness? N o Do you anticipate that your evaluation will be used in any legal action against your current employer or former employer? N o Have you had any job with high exposure to fumes, chemicals, dust or other noxious substances? N o Are you currently a student? N o E nvironmental History Living environment: p rivate home,with pets,with relatives Where is the home located? [place] Age of home: 8 0 How long have you lived there? 5 years or more How many people live in the home? 3 H ome description Basement: Y es Any water damage in basement? N o Smokers in the home? N o Smokers outside the home? N o Air Conditioning? Y es Central Air? Y es Forced air heating? Y es Gas or electric? e lectric Fireplace? N o Wood burning stove? N o Do you vacuum the home? Y es Air purification systems? N o Pillow and mattress dust-proof encasings? N o Do you use a humidifier? Y es Whole house or room? r oom humidifier Does it have a humidistat? N o Is it used year-round, seasonal, or as needed? s easonal Is the humidifier cleaned regularly? Y es Do you own any pets? Y es What kind(s)? (click all that apply) c ats,dog,horse Where do your pets sleep? o ther room in home Fabric softeners used? Y es Plants in the home? N o Is there carpeting in your bedroom? N o Do you have [id number] carpeting? N o What is the age of your mattress (years)? 1 0 What material(s) are used to manufacture your bedding and pillow? n atural fiber (e.g. cotton) What is the age of your pillow (years)? 1 What material are your bedding items made of? n atural fiber (e.g. cotton) Do you sleep with quilts or blankets or a duvet? Y es What material? n atural fiber (e.g. cotton) How many cats? 1 How many dogs? 2 How many horses? 2 * Medications: T aking Low-Ogestrel 0.3-30 MG-MCG Tablet 1 tablet Orally Once a day As needed, Taking Rizatriptan Benzoate 10 MG Tablet 1 tablet Orally once, may repeat x1 after 2-4 hours As needed for migraine (max 2 tabs/day), Taking LaMICtal 200 MG Tablet 1 tablet Orally Once a day * Allergies: N .K.D.A. Objective: * Vitals: * Examination: G eneral examination: General appearance: P leasant, well-developed, no distress.? HEENT: N o papilledema. Tenderness to palpation over bilateral greater occipital nerves bilaterally. Neck, thyroid : S upple. Neurologic exam: A lert and oriented x 4. Fluent speech. Intact recall, fund of knowledge. Appropriate affect. PERRL. EOMI without nystagmus. No visual field cut. Facial sensation intact to light touch and in bilateral V1/V2/V3. Facial movements normal and symmetric. Hearing intact to finger rub bilaterally. Palate symmetrically upgoing. Tongue midline. Motor 5/5 strength in all extremities. Reflexes 2+/2 and symmetric in all extremities. Sensory exam intact to light touch, pinprick, vibration, and proprioception in all extremities. Cerebellar testing no ataxia or dysmetria. Gait normal, negative Romberg, intact tandem.. Skin: N ormal, no rash, urticaria, angioedema. Back: B ilateral R > L p eriscapular trigger points. Normal cervical ROM. Extremities: N o peripheral e stu. ? Assessment: * Assessment: 1. M igraine without aura, not intractable, without status migrainosus - G43.009 ?2. D rug-induced headache, not elsewhere classified, not intractable - G44.40 ?3. M yalgia, unspecified site - M79.10 4 . G eneralized idiopathic epilepsy and epileptic syndromes, not intractable, without status epilepticus - G40.309 Plan: * Treatment: * Procedure Codes: 9 6160 PT-FOCUSED HLTH RISK ASSMT, G8427 DOC MEDS VERIFIED W/PT OR RE, G2211 Complex e/m visit add on * Follow Up: R lucio: Evaluation and Management * Billing Information: * Visit Code: 31615 Office Visit, Est Pt., Level 4. Modifiers: 213 Office Visit, Est Pt., Level 3. Modifiers: Office Visit, Est Pt., Level 5. Modifiers: 25 * Procedure Codes: 48176 PT-FOCUSED HLTH RISK ASSMT. G8427 DOC MEDS VERIFIED W/PT OR RE. G2211 Complex e/m visit add on. * Electronic signature of Sierra johansendennis Linares , SALES PROJECT COORDINATOR-Dana on 04/28/2024 at 12:35 AM SIGNALMAN Sign off status: Pending * Provider: Chela Linares APRN Date: 0 04/08/2024 Generated for Printi ng/Fameirg/eTransmitting on: 0 04/28/2024 12:35 AM SIGNALMAN History and Physical Notes * HPI (History of Present Illness) Category Sub-Category Detail Notes Category Notes *Introduction I had the pleasure of seeing Natali Lala, who presented for follow-up for migraine, MOH, myalgia, and generalized idiopathic epilepsy *Initial History INITIAL VISIT HISTORY: She has a history of migraine headaches that started at age 12. The headaches have become worse over the last three years. She occasionally has a seizure aura that lasts less than one minute. The seizure auras are characterized by mild twitching of her legs or numbness in her tongue. The auras occur infrequently and have not evolved into a seizure in 12+ years. She has been on lamotrigine for prophylaxis with the last epileptic event in 2010. 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 Headache History: -Headache Onset: Age 12, worse in the last 3 years-Headache Description: Starts with a dull pain in temples or behind her eye (usually on the right side). The dull pain becomes severe pain within an hour. She has accompanying symptoms of vertigo ( room spinning ), nausea, photophobia, phonophobia, hyperosmia, and GI upset (vomiting and/or diarrhea). Headaches last 2-5 hours if not treated at the onset of symptoms. Postdrome: Fatigue and drowsiness for the remainder of the day. Dull headache pain the following day. -Headache Triggers: Stress, letdown after stress, weather changes (barometric pressure change), menstrual cycle, under sleeping, over sleeping, specific foods, dehydration, skipping a meal, too much or too little caffeine, strong odors, infection (cold, flu, fevers, etc.) -Headache Frequency: The patient is currently experiencing 15-18 Headache days/month and 12 Migraine days/month *Previous Impression & Plan Notes Previous Diagnoses:1. Migrai ne without aura, not intractable, without status migrainosus - G43.0092. Drug-induced headache, not elsewhere classified, not intractable - G44.403. Myalgia, unspecified site - M79.104. Generalized idiopathic epilepsy and epileptic syndromes, not intractable, without status epilepticus - G40.309Previous Recommendations:1. Abortive: Start rizatriptan 10 mg. Gave samples of Nurtec and Ubrelvy. Preventive: The patient prefers not to be on daily preventative medication at this time.2.Limit use of OTC analgesics to 2 days per week or less. Educated patient regarding medication overuse headaches. Advised to avoid taking NSAIDs or acetaminophen > 15 days/month, triptans or DHE > 10 days/month, butalbital > 10 days/month to avoid rebound headaches. 3. Continue chiropractic treatments. 4. Continue lamotrigine as prescribed *Interval History Notes Pharmacologic Treatment:Curr ent abortive treatment: Rizatriptan 10 mg, Nurtec and Ubrelvy samples, ExcedrinPrevious abortive treatment: Sumatriptan (side effects- nausea), Medrol DosepakCurrent preventive treatment: NonePrevious preventive treatment: Nortriptyline (side effects- dry mouth and blurred vision), topamax (prescribed for seizures, ineffective for migraines), lamotrigine (currently takes for seizure prophylaxis, ineffective for headaches)Medication overuse: Not presentOther modalities: Chiropractic biweekly (for migraines and occasional shoulder pain- ineffective)Headache Frequency:Initial/baseline headache/migraine days/month: 15-18/12Last visit headache/migraine days/month: 15-18/12Current headache/migraine days/month: /Headache Scales:HIT-6: Current score: . Prior score: 67Interval History:Last visit was on 04/08/2024. Examination Category Sub-Category Detail Notes Category Not es General examination HEENT: No papillede ma. Tenderness to palpation over bilateral greater occipital nerves bilaterally Neck, thyroid : Supple Extremities: No peripheral edema General appearance: Pleasant, well-devel oped, no distress Skin: Normal, no rash, urt icaria, angioedema Neurologic exam: Alert and oriented x 4. Fluent speech. Intact recall, fund of knowledge. Appropriate affect. PERRL. EOMI without nystagmus. No visual field cut. Facial sensation intact to light touch and in bilateral V1/V2/V3. Facial movements normal and symmetric. Hearing intact to finger rub bilaterally. Palate symmetrically upgoing. Tongue midline. Motor 5/5 strength in all extremities. Reflexes 2+/2 and symmetric in all extremities. Sensory exam intact to light touch, pinprick, vibration, and proprioception in all extremities. Cerebellar testing no ataxia or dysmetria. Gait normal, negative Romberg, intact tandem. Back: Bilateral R > L sylvia scapular trigger points. Normal cervical ROM
--- OUTSIDE RECORDS SUMMARY | 2024-04-28 00:36 | XMS_ITS ---
Author Organization [facility] Address [address] [place] [address] Care Team Providers Care Lock Assembler Name Role Phone Judicm Fadia Primary Care Provider Unavailab Leyda Lal Unavailable [phone] [facility] En[facility] Location Date Provider Diagnosis [facility] [address] [place] [address] 04/08/2024 Leyda Linares Plan Of Treatment Next Appt Details Provider Name:Leyda ascencio, 05/13/2024 03:30:00 PM, [address], [place], [address], Progress Notes * Martir LALAOB:[birth year] (38 yo F)Acc No.[id number]:04/08/2024 Patient: Natali MERA :1985 A ge:38 Y S ex:Female Address:[address] [place] [address], [address] * true * Date: Generated for Printi ng/Faxing/eTransmitting on: 0 04/28/2024 12:35 AM SPRAY RIG OPERATOR
[2024-04-28 10:05] VITALS: BP 112/86; PULSE 86; RESP 18; TEMP 36.5; O2SAT 100
[2024-04-28 10:10] LABS: BEDSIDEPREGUCG Negative (Negative)
[2024-04-28] MEDS: ACETAMINOPHEN 500 MG TABLET 1000 MG PO (10:18)
[2024-04-28] MEDS: LACTATED RINGERS 1,000 ML 30 ML IV CONT (10:22)
--- NOTE | 2024-04-28 12:06 | P.HP_ITS ---
H&P: HPI History of Present Illness Date/Time: 04/28/24 12:06 Chief Complaint: Heavy periods Narrative: 38 y/o female with heavy, irregular menses. Her plans a vasectomy. [facility] Past Medical History Medical History Epilepsy Seizure last 2010 Social History Social History Smoking status: Never smoker Second hand tobacco smoke exposure: No Substance use: never Substance use type: does not use Living arrangements: with family Additional living arrangements comments: with and daughter Spiritual care concerns: No Meds Home Medications and Allergies Home Medications ?Medication ?Instructions ?Recorded ?Confirmed ?Type lamotrigine 100 mg tablet 200 mg PO BID 04/19/24 04/28/24 History norethindrone 1 mg-ethinyl 1 tablet PO DAILY 04/19/24 04/28/24 History estradiol 10 mcg (24)-iron 10 mcg(2) tablet (Lo Loestrin Fe) rimegepant 75 mg disintegrating 75 mg PO PRN PRN migraine headache 04/19/24 04/19/24 History tablet (Nurtec ODT) Allergies Allergy/AdvReac Type Severity Reaction Status Date / Time No Known Allergies Allergy Unknown Verified 04/28/24 10:06 Vital Signs Vital Signs - 24 hr 04/28/24 10:05 Temperature 36.5 C Pulse Rate 86 Respiratory Rate 18 Blood Pressure 112/86 Pulse Oximetry 100 Oxygen Delivery Room Air Assessment and Plan Assessment and plan (1) Menometrorrhagia: Code(s): N92.1 - Excessive and frequent menstruation with irregular cycle Status: Acute Assessment and Plan: A: Menometrorrhagia. P: She is interested in surgical management of her problem. I have offered her hysteroscopy with dilation and sharp curettage and endometrial ablation. She understands risks of surgery to include risks of anesthesia, risks of pain, infection, bleeding, blood products, thromboembolic phenomena and damage to adjacent structures such as bowel, bladder, ureters, blood vessels and nerves. She understands that endometrial ablation is not sufficient for contraception, and her partner is scheduled for vasectomy. She understands all these risks and elects to proceed with surgery.
--- NOTE | 2024-04-28 12:09 | WPDHPUPDATE1 ---
History and Physical Update Update Date/Time: 04/28/24 12:09 History and Physical has been reviewed, including an updated exam of the patient. There are NO changes in the patient's condition. Risks, benefits, and alternatives have been discussed and questions answered. Patient agrees to proceed with procedure.
--- NOTE | 2024-04-28 12:14 | PM.IMHP ---
H&P: HPI History of Present Illness Date/Time: 04/28/24 12:14 Chief Complaint: Heavy periods Narrative: Physical exam was left off of the previously entered H&P. Exam is included here. Review of Systems Review of Systems: All systems reviewed & are unremarkable except as noted in HPI and below PMFSH Past Medical History Medical History Epilepsy Seizure last 2010 Social History Social History Smoking status: Never smoker Second hand tobacco smoke exposure: No Substance use: never Substance use type: does not use Living arrangements: with family Additional living arrangements comments: with and daughter Spiritual care concerns: No Meds Home Medications and Allergies Home Medications ?Medication ?Instructions ?Recorded ?Confirmed ?Type lamotrigine 100 mg tablet 200 mg PO BID 04/19/24 04/28/24 History norethindrone 1 mg-ethinyl 1 tablet PO DAILY 04/19/24 04/28/24 History estradiol 10 mcg (24)-iron 10 mcg(2) tablet (Lo Loestrin Fe) rimegepant 75 mg disintegrating 75 mg PO PRN PRN migraine headache 04/19/24 04/19/24 History tablet (Nurtec ODT) Allergies Allergy/AdvReac Type Severity Reaction Status Date / Time No Known Allergies Allergy Unknown Verified 04/28/24 10:06 Vital Signs Vital Signs - 24 hr 04/28/24 10:05 Temperature 36.5 C Pulse Rate 86 Respiratory Rate 18 Blood Pressure 112/86 Pulse Oximetry 100 Oxygen Delivery Room Air Exam Const: Orientation/consciousness: patient oriented x3 Other: Well-developed, well-nourished female in no acute distress. Neck: Thyroid: thyroid normal Lymphatic: no lymphadenopathy noted (in neck, axilla or inguinal nodes) Resp: Effort & Inspection: normal respiratory effort Auscultation: clear to auscultation bilaterally Cardio: Rate: regular rate Rhythm: regular rhythm Heart sounds: S1 normal heart sound present and S2 normal heart sound present GI: Other: ABD: Soft, nontender, nondistended. No guarding or rebound tenderness. No hepatosplenomegaly. : General: Yes no CVA tenderness Other: External genitalia: normal female hair distribution, without lesion. Urethral meatus: no lesion, non prolapsed. Bladder: no mass, nontender Vagina: well-estrogenized, without lesion or discharge. No cystocele or rectocele. Cervix: no lesion or discharge. Uterus: small, anteverted, freely mobile, nontender Adnexa: no mass or tenderness. Anus/perineum: no lesions, nontender Back/Spine/Pelvis: Back: no CVA tenderness Skin: General skin exam: normal color and no rashes or lesions noted Neuro: General: patient oriented x3 Extrem: Other: Extremities: nontender with no edema Psych: Mental Status: mental status grossly normal Affect: normal affect Assessment and Plan Assessment and plan (1) Menometrorrhagia: Code(s): N92.1 - Excessive and frequent menstruation with irregular cycle Status: Acute Assessment and Plan: Hysteroscopy with dilation and sharp curettage and endometrial ablation. See original H&P for details.
[2024-04-28] MEDS: LIDOCAINE 1% LOCAL INJ 10 ML VIAL INFILTRATE (12:23)
[2024-04-28 12:42] VITALS: BP 102/71; PULSE 83; RESP 14; O2SAT 100
--- NOTE | 2024-04-28 12:43 | W.PM.PROC2 ---
Procedure Note - Detailed Date of Procedure 04/28/24 Pre-op Diagnosis Menometrorrhagia Post-op Diagnosis Same Procedure Performed Hysteroscopy Dilation and sharp curettage Endometrial ablation Surgeon Mahad Montejo MD Anesthesia MAC and Local (1% lidocaine) Findings Normal-appearing endometrial cavity. Both tubal ostia seen. Description of Procedure The patient was taken to the operating room where she was prepared and draped in the usual sterile fashion in the dorsal lithotomy position. The bladder was drained with a red rubber catheter. A sterile speculum was placed into the vagina. The anterior lip of the cervix was grasped with single-tooth tenaculum. Ten mL of 1% lidocaine was administered in a paracervical block. The cervix was then gently dilated using Hegar dilators until a 7 mm dilator could be passed. Hysteroscopy was performed using sterile saline as a distention medium. Findings are as noted above. Sharp curettage was then performed, and endometrial curettings were collected on a Telfa pad and passed off to be sent to pathology. Finally, the the Kayla device was advanced and endometrial ablation commenced without difficulty. The device was withdrawn and a second look was taken using the hysteroscope. Excellent coverage of the endometrial cavity was noted. The tenaculum was removed. Hemostasis was excellent. Sponge, lap, needle and instrument counts were correct. The patient was awakened and taken to the recovery room in stable condition. I was present and scrubbed through the entire procedure. Implants None Estimated Blood Loss 5 Drains No Packing No Pathology Yes (Endometrial curettings) Complications None Condition Stable Disposition PACU
[2024-04-28 13:15] VITALS: BP 116/86; PULSE 78; RESP 16
[2024-04-28] MEDS: oxyCODONE HCL (*CRX) 5 MG TAB IR PO (13:19)
[2024-04-28 13:45] VITALS: BP 123/80; PULSE 68; RESP 16
[2024-04-28 14:15] VITALS: BP 102/71; PULSE 77; RESP 16; O2SAT 100
== END 2024-04-28 14:24 | disposition home or self-care (01) ==
PROVIDERS: PCP Otolaryngology; Visit Provider Obstetrics & Gynecology
PROC: 0U5B8ZZ Destruction of Endometrium, Via Natural or Artificial Opening Endoscopic (ICD-10-PCS; CPT 58563; principal; 2024-04-28 12:00)
DX: N92.1 Excessive and frequent menstruation with irregular cycle (principal); G89.18 Other acute postprocedural pain; G40.909 Epilepsy, unspecified, not intractable, without status epilepticus
CPT/HCPCS: 58563; 88305; A9270; J2003; J2250; J2704; J3010; J7120